=== PATIENT | female | born 1975 | race Two or more races ===

== ENCOUNTER 2022-11-19 18:09 | Emergency (ER) | payer MEDICAID, OTHER ==
[~2022-11-19] VITALS: Ht 165.1 cm; Wt 102.6 kg
[2022-11-19 18:48] VITALS: O2SAT 98
[2022-11-20] MEDS ORDERED: LORazepam 0.5 MG TAB PO ONE (02:30)
[2022-11-20] MEDS ORDERED: GABA-1250 PO (02:34)
[2022-11-20] MEDS ORDERED: ESCI10TA PO (02:34)
[2022-11-20] MEDS ORDERED: METF-372 PO (02:34)
[2022-11-20] MEDS ORDERED: ATOR40TA52 PO (02:34)
[2022-11-20] MEDS ORDERED: LOSA25TA15 PO (02:34)
[2022-11-20 02:51] VITALS: BP 131/74; PULSE 67; RESP 18; TEMP 98.3
== END 2022-11-20 02:54 | disposition home or self-care (01) ==
LOC: ER 18:09
DX: E11.65 Type 2 diabetes mellitus with hyperglycemia (principal); I10 Essential (primary) hypertension; F41.9 Anxiety disorder, unspecified; G62.9 Polyneuropathy, unspecified; E78.5 Hyperlipidemia, unspecified; Z79.84 Long term (current) use of oral hypoglycemic drugs; Z79.899 Other long term (current) drug therapy; Z88.0 Allergy status to penicillin
CPT/HCPCS: 82962

== ENCOUNTER 2023-02-11 13:27 | Emergency (ER) | payer SELFPAY ==
[~2023-02-11] VITALS: Ht 165.1 cm; Wt 101.8 kg
[~2023-02-11 13:27] MED LIST: ATOR40TA52 PO; ESCI10TA PO; GABA-1250 PO; LOSA25TA15 PO; METF-372 PO
[2023-02-11 18:44] VITALS: BP 131/69; PULSE 83; RESP 18; TEMP 98.1; O2SAT 99
[2023-02-11] MEDS ORDERED: GABA-1250 PO (18:58)
[2023-02-11] MEDS ORDERED: CLIN300C70 PO (18:58)
[2023-02-11] MEDS ORDERED: ESCI10TA PO (18:58)
[2023-02-11] MEDS ORDERED: METF-372 PO (18:58)
[2023-02-11] MEDS ORDERED: ACET500T58 PO (18:58)
== END 2023-02-11 19:04 | disposition home or self-care (01) ==
LOC: ER 13:27
DX: K04.7 Periapical abscess without sinus (principal); R51.9 Headache, unspecified; F41.9 Anxiety disorder, unspecified; G62.9 Polyneuropathy, unspecified; I10 Essential (primary) hypertension; E11.9 Type 2 diabetes mellitus without complications; Z88.0 Allergy status to penicillin

== ENCOUNTER 2023-07-25 16:12 | Emergency (ER) | payer MEDICAID ==
[~2023-07-25] VITALS: Ht 165.1 cm; Wt 108.5 kg
[~2023-07-25 16:12] MED LIST changes: +ACET500T58 PO; +CLIN1CAP70 PO; +LOSA-533 PO; -LOSA25TA15 PO
[2023-07-25] MEDS ORDERED: SODIUM CHLORIDE 0.9% 1,000 ML IV ONE (16:30)
[2023-07-25 16:42] VITALS: BP 128/68; RESP 16; O2SAT 94
[2023-07-25] MEDS ORDERED: LOSA-533 PO (16:49)
[2023-07-25] MEDS ORDERED: INSU70IN3 SC ×2 (16:49)
[2023-07-25] MEDS ORDERED: ATOR40TA52 PO (16:49)
[2023-07-25] MEDS ORDERED: MECL-90 PO (16:49)
[2023-07-25] MEDS ORDERED: GLUC-145 VI (16:49)
[2023-07-25] MEDS ORDERED: GABA-1250 PO (16:49)
[2023-07-25] MEDS ORDERED: METF-371 PO (16:49)
[2023-07-25] MEDS ORDERED: ESCI1TAB36 PO (16:49)
[2023-07-25 19:18] VITALS: PULSE 71
== END 2023-07-25 19:18 | disposition home or self-care (01) ==
LOC: ER 16:12
DX: E11.65 Type 2 diabetes mellitus with hyperglycemia (principal); E78.5 Hyperlipidemia, unspecified; I10 Essential (primary) hypertension; Z76.0 Encounter for issue of repeat prescription; Z88.0 Allergy status to penicillin
CPT/HCPCS: 82962

== ENCOUNTER 2024-04-04 14:15 | Emergency (ER) | payer MEDICAID ==
[~2024-04-04] VITALS: Ht 165.1 cm; Wt 113.7 kg
[~2024-04-04 14:15] MED LIST changes: +ESCI1TAB36 PO; +GLUC-145 VI; +INSU70IN3 SC; +MECL-90 PO; +METF-371 PO
[2024-04-04 16:06] VITALS: BP 134/60; PULSE 81; RESP 16; TEMP 98.1; O2SAT 96
[2024-04-04] MEDS ORDERED: METF-372 PO (16:17)
[2024-04-04] MEDS ORDERED: SERT50TA PO (16:17)
--- NOTE | 2024-04-04 16:21 | ED.PDOC ---
History of Present Illness HPI Comments A 48 YEAR OLD FEMALE PRESENTS TO THE ED WITH CHIEF COMPLAINT OF MEDICATION REFILL. PATIENT REPORTS THAT SHE NEEDS A REFILL OF HER METFORMIN AND ZOLOFT HER NEXT PCP APPOINTMENT IS IN 2 WEEKS. PATIENT STATES SHE HAS BEEN OUT OF HER MEDICATION FOR 3 DAYS. PATIENT DENIES ANY SYMPTOMS AT THIS TIME. NO OTHER SY MPTOMS REPORTED AT THIS TIME OF CARE. Chief Complaint: Hyperglycemia Time Seen by MD: 16:16 Primary Care Provider: THU Reviewed Notes: Nurses Notes, Medications, Allergies Allergies: Coded Allergies: Penicillins (Verified Allergy, Unknown, 11/19/22) Home Meds Active Scripts Sertraline Hcl (Zoloft) 50 Mg Tab, 1 TAB PO DAILY, #30 TAB Prov:IGGY GIL 04/04/24 Metformin Hydrochloride (Metformin Hcl) 1,000 Mg Tab, 1 TAB PO BID, #60 TAB 0 Refills Prov:IGGY GIL 04/04/24 Insulin NPH Isophane & Reg (Hu (Novolin 70/30 (70-30) 100 Unit/ml) 1 Inj Inj, 23 UNITS SC DAILY@DINNER for 30 Days, #20 ML 3 Refills Prov:HENRIKENDALLZoltanPAMELA José DO 07/25/23 Insulin NPH Isophane & Reg (Hu (Novolin 70/30 (70-30) 100 Unit/ml) 1 Inj Inj, 27 UNITS SC DAILY@LUNCH for 30 Days, #20 ML Prov:HENRIKENDALLZoltanPAMELA José DO 07/25/23 Glucose Blood (Freestyle Test Strips) [place]antelle, 120 STRIPS BID for 30 Days, #120 MISC 3 Refills Prov:HENRIKENDALLZoltanPAMELA José DO 07/25/23 Losartan Potassium (Losartan Potassium) 25 Mg Tab, 1 TAB PO DAILY for 90 Days, #90 TAB 1 Refill Prov:HENRIKENDALLZoltanJULIANBeatriz Kumar DO 07/25/23 Escitalopram Oxalate (ESCITALOPRAM OXALATE) 10 Mg Tab, 3 TAB PO DAILY for 90 Days, #270 TAB 3 Refills Prov:HENRIKENDALLZoltanJULIANBeatriz Kumar DO 07/25/23 Gabapentin (Gabapentin) 300 Mg Cap, 1 CAP PO BID for 30 Days, #60 CAP 5 Refills Prov:HENRIKENDALLZoltanJULIANBeatriz Kumar DO 07/25/23 Metformin Hydrochloride (Metformin Hcl) 850 Mg Tab, 1000 MG PO BID for 90 Days, #180 TAB Prov:MARYLOU ÁLVAREZ DO 07/25/23 Meclizine Hcl (Meclizine Hcl) 25 Mg Tab, 25 MG PO TIDPRN PRN for 10 Days, #30 TAB Prov:MARYLOU ÁLVAREZ DO 07/25/23 Atorvastatin Calcium (ATORVASTATIN CALCIUM) 40 Mg Tab, 1 TAB PO QPM for 90 Days, #90 TAB 3 Refills Prov:MARYLOU ÁLVAREZ DO 07/25/23 Escitalopram Oxalate (Lexapro) 10 Mg Tab, 3 TAB PO DAILY, #30 TAB 0 Refills Prov:ANDRÉS SALMERON 02/11/23 Gabapentin (Gabapentin) 300 Mg Cap, 1 CAP PO BID, #60 CAP 0 Refills Prov:ANDRÉS SALMERON 02/11/23 Metformin Hydrochloride (Metformin Hcl) 1,000 Mg Tab, 1 TAB PO BID, #60 TAB 0 Refills Prov:ANDRÉS SALMERON 02/11/23 Acetaminophen (Acetaminophen) 500 Mg Tab, 500 MG PO QIDP, #30 TAB 0 Refills Prov:ANDRÉS SALMERON 02/11/23 Clindamycin Hcl (Clindamycin Hcl) 300 Mg Cap, 1 CAP PO TID for 7 Days, #21 CAP 0 Refills Prov:ANDRÉS SALMERON 02/11/23 Escitalopram Oxalate (Lexapro) 10 Mg Tab, 1 TAB PO TID for 7 Days, #21 TAB 0 Refills Prov:ANDRÉS SALMERON 11/20/22 Atorvastatin Calcium (ATORVASTATIN CALCIUM) 40 Mg Tab, 1 TAB PO DAILY, #30 TAB 0 Refills Prov:ANDRÉS SALMERON 11/20/22 Losartan Potassium (Losartan Potassium) 25 Mg Tab, 1 TAB PO DAILY for 7 Days, #7 TAB 0 Refills Prov:ANDRÉS SALMERON 11/20/22 Gabapentin (Gabapentin) 300 Mg Cap, 1 CAP PO BID, #60 CAP 0 Refills Prov:ANDRÉS SALMERON 11/20/22 Information Source: Patient Mode of Arrival: Ambulatory Severity: None Timing: Minutes Duration: Since onset Prehospital treatment: None Medication Refill: Ran out of Medication, For: Diabetes, For: Psychiatric Past Medical History PAST MEDICAL HISTORY: Anxiety, Depression, DM, High Lipids, HTN Surgical History: Denies all surgeries RAIL MANAGER History: 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 all 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 Family History Family History: Reviewed,noncontributory to illness, Unknown Social History Smoker: Non-Smoker Alcohol: Denies ETOH Use Drugs: Denies Drug Use Lives In: Home Constitutional: denies: chills, diaphoresis, fatigue, fever, malaise, sweats, weakness, others EENTM: denies: blurred vision, double vision, ear bleeding, ear discharge, ear drainage, ear pain, ear ringing, eye pain, eye redness, hearing loss, mouth pain, mouth swelling, nasal discharge, nose bleeding, nose congestion, nose pain, photophobia, tearing, throat pain, throat swelling, voice changes, others Respiratory: denies: cough, hemoptysis, orthopnea, SOB at rest, shortness of breath, SOB with excertion, stridor, wheezing, others Cardiovascular: denies: chest pain, dizzy spells, diaphoresis, Dyspnea on exertion, edema, irregular heart beat, left arm pain, lightheadedness, palpitations, PND, syncope, others Gastrointestinal: denies: abdomen distended, abdominal pain, blood streaked bowels, constipated, diarrhea, dysphagia, difficulty swallowing, hematemesis, melena, nausea, poor appetite, poor fluid intake, rectal bleeding, rectal pain, vomiting, others Genitourinary: denies: abnormal vagina bleeding, burning, dyspareunia, dysuria, flank pain, frequency, hematuria, incontinence, pain, , vagina discharge, urgency, others Neurological: denies: dizziness, fainting, headache, left sided numbness, left sided weakness, numbness, paresthesia, pre-existing deficit, right sided numbness, right sided weakness, seizure, speech problems, tingling, tremors, weakness, others Musculoskeletal: denies: back pain, gout, joint pain, joint swelling, muscle pain, muscle stiffness, neck pain, others Integumetry: denies: bruises, change in color, change in hair/nails, dryness, laceration, lesions, lumps, rash, wounds, others Allergic/Immunocompromised: denies: Difficulty Healing, Frequent Infections, Hives, Itching, others Hematologic/Lymphatic: denies: anemia, blood clots, easy bleeding, easy bruising, swollen glands, others Endocrine: denies: excessive hunger, excessive sweating, excessive thirst, excessive urination, flushing, intolerance to cold, intolerance to heat, unexplained weight gain, unexplained weight loss, others Psychiatric: denies: anxiety, bipolar disorder, depression, hopeless, panic disorder, schizophrenia, sleepless, suicidal, others All Other Systems: Reviewed and Negative Physical Exam General Appearance: No Apparent Distress, Obese HEENT: Normal ENT Inspection, PERRL/EOMI Neck: Full Range of Motion, Non-Tender, Normal, Normal Inspection Respiratory: Chest Non-Tender, Lungs Clear, No Accessory Muscle Use, No Respiratory Distress, Normal Breath Sounds Cardiovascular: No Edema, No JVD, No Murmur, No Gallop, Normal Peripheral Pulses, Regular Rate/Rhythm Breast Exam: Deferred Gastrointestinal: No Organomegaly, Non Tender, No Pulsatile Mass, Normal Bowel Sounds, Soft Genitalia: Deferred Pelvic: Deferred Rectal: Deferred Extremities: No calf tenderness, Normal capillary refill, Normal inspection, Normal range of motion, Non-tender, No pedal edema Musculoskeletal : Apperance: Normal Neurologic: Alert, ash conveyor operator II-XII nml as Tested, No Motor Deficits, Normal Affect, Normal Mood, No Sensory Deficits Cerebellar Function: Normal Reflexes: Normal Skin: Dry, Normal Color, Warm Peripheral Pulses: 2+ carotid (R), 2+ carotid (L) Lymphatic: No Adenopathy Was a procedure done? Was a procedure done?: No Differential Dx Considerations may include: MEDICATION REFILL, HX OF DM AND DEPRESSION X-Ray, Labs, Meds, VS Vital Signs Date Time Temp Pulse Resp B/P (MAP) Pulse Ox O2 Delivery O2 Flow Rate FiO2 04/04/24 16:06 81 16 96 Room Air 04/04/24 16:06 98.1 81 16 134/60 (84) 96 98.1 04/04/24 15:13 98.1 81 16 134/60 (84) 96 X-Ray, Labs, Meds, VS Comment EXTERNAL MEDICAL RECORDS REVIEWED: [NONE] INDEPENDENT HISTORIANS: [NONE] SOCIAL DETERMINANTS OF HEALTH: [NONE] LABS ORDERED: NONE REVIEWED AND INTERPRETED RESULTS: NONE IMAGING ORDERED: NONE TREATMENTS ORDERED: NONE PROCEDURES PERFORMED: NONE CRITICAL CARE TIME: NONE I HAVE DISCUSSED THE PATIENT WITH THE ATTENDING PHYSICIAN [PHYSICIAN'S NAME] AND HE AGREES WITH THE PATIENT'S PLAN OF CARE AND DISPOSITION. GIVEN THE HISTORY AND PRESENT ILLNESS OF THE PATIENT, AFTER REVIEWING LABS, IMAGING, AND COURSE OF TREATMENT ADMINISTERED DURING THEIR ED VISIT, THERE IS LOW SUSPICION FOR RED FLAG FINDINGS. BASED ON HISTORY OF PRESENT ILLNESS, AND PHYSICAL EXAM, PATIENT WILL BE DISCHARGED HOME. DISCUSSED PLAN FOR DISCHARGE HOME WITH RX METFORMIN AND ZOLOFT. MEDICATION WARNINGS GIVEN. SHARED DECISION MAKING: DISCUSSED WITH PATIENT THAT THEIR WORKUP WAS NORMAL. PATIENT INSTRUCTED TO FOLLOW UP WITH PRIMARY CARE PROVIDER IN 1-2 DAYS FOR RE- EVALUATION OF SYMPTOMS. PATIENT VERBALIZES UNDERSTANDING TO RETURN TO ED FOR NEW OR WORSENING SYMPTOMS OR IF FOLLOW UP WITH PCP CANNOT BE OBTAINED. PATIENT FEELS COMFORTABLE GOING HOME AT THIS TIME. ALL QUESTIONS ADDRESSED AT TIME OF DISC HARGE. Time of 1ST Reevaluation: 16:27 Reevaluation 1ST: Improved Patient Education/Counseling: Diagnosis, Treatment, Need For Follow Up Family Education/Counseling: Diagnosis, Treatment, No Family Present Medical Screening: No EMC Exist At This Time Departure 1 Departure Time of Disposition: 16:27 Impression: Primary Impression: Medication refill Additional Impression: Hx of diabetes mellitus Disposition: HOME / SELF CARE / HOMELESS Condition: Stable Additional Instructions: FOLLOW-UP WITH PCP IN 2 WEEKS. TAKE MEDICATIONS PRESCRIBED. RETURN TO ED FOR ANY NEW OR WORSENING SYMPTOMS. e-Prescriptions Sertraline Hcl (Zoloft) 50 Mg Tab 1 TAB PO DAILY, #30 TAB Prov: IGGY GIL 04/04/24 Metformin Hydrochloride (Metformin Hcl) 1,000 Mg Tab 1 TAB PO BID, #60 TAB 0 Refills Prov: IGGY GIL 04/04/24 Discharged With: Self Critical Care Note Critical Care Time?: No Stability Stability form required: No Heart Score Heart Score: Heart Score Response (Comments) Value History N/A 0 EKG N/A 0 Age N/A 0 Risk Factors N/A 0 Troponin N/A 0 Total 0 I personally scribed for IGGY GIL ([email or web address]) on 04/04/24 at 16:21. Electronically submitted by Holland Robles ([email or web address]). IGGY GIL Apr 04, 2024 16:21
== END 2024-04-04 16:27 | disposition home or self-care (01) ==
LOC: ER 14:15
DX: E11.9 Type 2 diabetes mellitus without complications (principal); F32.A Depression, unspecified; F41.9 Anxiety disorder, unspecified; I10 Essential (primary) hypertension; Z76.0 Encounter for issue of repeat prescription; Z79.84 Long term (current) use of oral hypoglycemic drugs; Z79.899 Other long term (current) drug therapy; Z88.0 Allergy status to penicillin

== ENCOUNTER 2024-09-09 16:17 | Emergency (ER) | payer MEDICAID ==
[~2024-09-09] VITALS: Ht 165.1 cm; Wt 113.1 kg
[~2024-09-09 16:17] MED LIST changes: +SERT50TA PO
[2024-09-09 16:57] LABS: Basophils # (auto) 0.1 10 ^3/uL (0-0.2); Eosinophils # (auto) 0.1 10 ^3/uL (0-0.8); Eosinophils % (auto) 1.6 % (0.0-7.0); Hemoglobin 11.5 g/dL (12.2-16.2); Monocytes # (auto) 0.5 10 ^3/uL (0-1.3); Neutrophils # (auto) 5.2 10 ^3/uL (1.6-8.6)
[2024-09-09 16:58] LABS: Basophils % (auto) 1.2 % (0.0-2.0); Hematocrit 35.6 % (36.0-46.0); Lymphocytes # (auto) 2.1 10 ^3/uL (0.4-5.4); Mean Corpuscular Hemoglobin 23.4 pg (28.0-32.0); Mean Corpuscular Hgb Conc. 32.4 g/dL (32.0-36.0); Mean Corpuscular Volume 72.1 fL (80.0-100.0); Monocytes % (auto) 6.2 % (0.0-12.0); Platelet Count (auto) 289 10^3/uL (140-450); Red Blood Cells 4.94 10^6/uL (4.0-5.20); Red Cell Distribution Width 16.5 % (11.8-14.3)
--- NOTE | 2024-09-09 17:04 | ED.PDOC ---
GI ASSESSMENT HPI Comments HPI: Poor Historian. 48-year-old female presents to emergency department for chronic left lower quadrant abdominal pain nonradiating worse with sitting down. She had this for at least one year but has been progressively getting worse in the last week. Patient had incidentally one-week of diarrhea yellow in color 4-5 times episodes per day over the last seven days. Patient already had an ultrasound of her pelvis which showed uterine fibroids. She also had an MRI pending. Denies . Patient stated that they did not ultrasound on her few months ago and they could not visualize the left ovary. She is awaiting an MRI. Past Medical History: Uterine fibroids, hypertension, diabetes, obesity Past Surgical History: , tubal ligation, appendectomy REVIEW OF SYSTEMS: CONSTITUTIONAL: Denies acute: fever, diaphoresis, chills, generalized weakness. HEAD: Denies acute: headache, photophobia Eyes: Denies acute: Double vision, vision loss, eye pain, eye discharge. EARS: Denies acute: tinnitus, hearing loss, ear discharge, ear pain, THROAT: Denies acute: sore throat, swelling, difficulty swallowing , pain with swallowing, change in voice. NECK: Denies acute: neck pain, neck swelling, stiff neck. HEART: Denies acute : chest pain, palpitations, LUNGS: Denies acute: SOB, wheezing, cough, hemoptysis ABDOMEN: Denies acute: Nausea, Vomiting, melena , hematemesis, hematochezia SKIN: Denies acute: rash, redness, lesions, itchiness. EXTREMITIES: Denies acute: calf pain, numbness, tingling, weakness, denies pain in extremity. Denies acute: Low back pain. Neuro: Denies acute: focal neurological deficit, motor or sensory focal neurological deficit, tremors, seizure like activity, confusion, dizziness, change in mental status, loss of bowel or bladder function, cauda equina like symptoms. : Denies acute: dysuria, hematuria, flank pain, increase in urinary frequency. PSYCH: Denies acute: hallucination, suicidal ideation, homicidal ideation. FEMALE: Denies acute: abnormal vaginal bleeding, foul odor, unusual discharge. PHYSICAL EXAM: General: ---mild-----acute distress, awake and alert. Head: normocephalic, atraumatic. Neck: supple, trachea is midline, no swelling. Throat: Normal phonation. Eyes:, no erythema, no purulent discharge, no proptosis, no icterus. Heart: regular rate, regular rhythm, no significant murmur appreciated. Lungs: no apparent respiratory distress, Able to speak in full sentences. No wheezing, no rhonchi, no crackles. No stridors Clear to auscultation bilaterally. Abdomen: Left lower quadrant tender to palpation, non distended, soft, no guarding, no rebound, + bowel sounds. Obese Neuro: Awake, Alert, oriented to name, self, situation, follows commands GCS=15. Speech is normal. Skin: no petechia, no purpura, no cyanosis, non-pale, not jaundice. Lower extremities: --no - Pitting edema no deformity, no focal swelling, no calf TTP. Makes eye contact. moves all four extremities. Face: no apparent facial droop. Ambulating in the ED independently. ED COURSE: Chief Complaint: Abdominal Pain Time Seen by MD: 16:28 Primary Care Provider: THU Reviewed Notes: Nurses Notes, Allergies Allergies: Coded Allergies: Penicillins (Verified Allergy, Unknown, 11/19/22) Home Meds Active Scripts Sertraline Hcl (Zoloft) 50 Mg Tab, 1 TAB PO DAILY, #30 TAB Prov:IGGY GIL 04/04/24 Metformin Hydrochloride (Metformin Hcl) 1,000 Mg Tab, 1 TAB PO BID, #60 TAB 0 Refills Prov:IGGY GIL 04/04/24 Insulin NPH Isophane & Reg (Hu (Novolin 70/30 (70-30) 100 Unit/ml) 1 Inj Inj, 23 UNITS SC DAILY@DINNER for 30 Days, #20 ML 3 Refills Prov:MARYLOU ÁLVAREZ DO 07/25/23 Insulin NPH Isophane & Reg (Hu (Novolin 70/30 (70-30) 100 Unit/ml) 1 Inj Inj, 27 UNITS SC DAILY@LUNCH for 30 Days, #20 ML Prov:MARYLOU ÁLVAREZ DO 07/25/23 Glucose Blood (Freestyle Test Strips) Shant[place], 120 STRIPS BID for 30 Days, #120 MISC 3 Refills Prov:MARYLOU ÁLVAREZ 07/25/23 Losartan Potassium (Losartan Potassium) 25 Mg Tab, 1 TAB PO DAILY for 90 Days, #90 TAB 1 Refill Prov:MARYLOU ÁLVAREZ 07/25/23 Escitalopram Oxalate (ESCITALOPRAM OXALATE) 10 Mg Tab, 3 TAB PO DAILY for 90 Days, #270 TAB 3 Refills Prov:MARYLOU ÁLVAREZ [facility] 07/25/23 Gabapentin (Gabapentin) 300 Mg Cap, 1 CAP PO BID for 30 Days, #60 CAP 5 Refills Prov:MARYLOU ÁLVAREZ 07/25/23 Metformin Hydrochloride (Metformin Hcl) 850 Mg Tab, 1000 MG PO BID for 90 Days, #180 TAB Prov:MARYLOU ÁLVAREZ 07/25/23 Meclizine Hcl (Meclizine Hcl) 25 Mg Tab, 25 MG PO TIDPRN PRN for 10 Days, #30 TAB Prov:MARYLOU ÁLVAREZ 07/25/23 Atorvastatin Calcium (ATORVASTATIN CALCIUM) 40 Mg Tab, 1 TAB PO QPM for 90 Days, #90 TAB 3 Refills Prov:MARYLOU ÁLVAREZ 07/25/23 Escitalopram Oxalate (Lexapro) 10 Mg Tab, 3 TAB PO DAILY, #30 TAB 0 Refills Prov:ANDRÉS SALMERON 02/11/23 Gabapentin (Gabapentin) 300 Mg Cap, 1 CAP PO BID, #60 CAP 0 Refills Prov:ANDRÉS SALMERON 02/11/23 Metformin Hydrochloride (Metformin Hcl) 1,000 Mg Tab, 1 TAB PO BID, #60 TAB 0 Refills Prov:ANDRÉS SALMERON 02/11/23 Acetaminophen (Acetaminophen) 500 Mg Tab, 500 MG PO QIDP, #30 TAB 0 Refills Prov:ANDRÉS SALMERON 02/11/23 Clindamycin Hcl (Clindamycin Hcl) 300 Mg Cap, 1 CAP PO TID for 7 Days, #21 CAP 0 Refills Prov:ANDRÉS SALMERON 02/11/23 Escitalopram Oxalate (Lexapro) 10 Mg Tab, 1 TAB PO TID for 7 Days, #21 TAB 0 Refills Prov:ANDRÉS SALMERON 11/20/22 Atorvastatin Calcium (ATORVASTATIN CALCIUM) 40 Mg Tab, 1 TAB PO DAILY, #30 TAB 0 Refills Prov:ANDRÉS SALMERON 11/20/22 Losartan Potassium (Losartan Potassium) 25 Mg Tab, 1 TAB PO DAILY for 7 Days, #7 TAB 0 Refills Prov:ANDRÉS SALMERON 11/20/22 Gabapentin (Gabapentin) 300 Mg Cap, 1 CAP PO BID, #60 CAP 0 Refills Prov:ANDRÉS SALMERON 11/20/22 Information Source: Patient Mode of Arrival: Ambulatory Past Medical History PAST MEDICAL HISTORY: Anxiety, Depression, DM, High Lipids, HTN Surgical History: Denies all surgeries 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 Was a procedure done?: No GI differential Dx Differential Diagnosis: Other (DDX include Diverticulitis, colitis, gastroenteritis, acute abdomen, SBO, enteritis, constipation, volvulus, appendicitis, Gallbladder disease, choledocolithiasis, ascending cholangitis, pancreatitis, intraAbdominal mass/neoplasm, hepatitis, UTI, pylonephritis, kidney stone, aneurysm, dissection, Inflammatory bowel disease, gastroparesis, ischemic bowel, ovarian torsion, ovarian cyst/mass, tubo-ovarian abscess, pre gnancy, ectopic , PID, STD.) X-Ray, Labs, Meds, VS Vital Signs Date Time Temp Pulse Resp B/P (MAP) Pulse Ox O2 Delivery O2 Flow Rate FiO2 09/09/24 20:10 Room Air* 0 21 09/09/24 19:35 64 20 97 Room Air 09/09/24 19:35 98.4 64 20 140/76 (97) 97 98.4 09/09/24 16:29 98.3 71 17 174/89 (117) 98 98.3 Lab Test 09/09/24 16:44 09/09/24 16:33 Range/Units White Blood Count 8.0 4.4-10.8 10^3/uL Red Blood Count 4.94 4.0-5.20 10^6/uL Hemoglobin 11.5 L 12.2-16.2 g/dL Hematocrit 35.6 L 36.0-46.0 % Mean Corpuscular Volume 72.1 L 80.0-100.0 fL Mean Corpuscular Hemoglobin 23.4 L 28.0-32.0 pg Mean Corpuscular Hemoglobin Concent 32.4 32.0-36.0 g/dL Red Cell Distribution Width 16.5 H 11.8-14.3 % Platelet Count 289 140-450 10^3/uL Mean Platelet Volume 8.6 6.9-10.8 fL Neutrophils (%) (Auto) 65.0 37.0-80.0 % Lymphocytes (%) (Auto) 26.0 10.0-50.0 % Monocytes (%) (Auto) 6.2 0.0-12.0 % Eosinophils (%) (Auto) 1.6 0.0-7.0 % Basophils (%) (Auto) 1.2 0.0-2.0 % Neutrophils # (Auto) 5.2 1.6-8.6 10 ^3/uL Lymphocytes # (Auto) 2.1 0.4-5.4 10 ^3/uL Monocytes # (Auto) 0.5 0-1.3 10 ^3/uL Eosinophils # (Auto) 0.1 0-0.8 10 ^3/uL Basophils # (Auto) 0.1 0-0.2 10 ^3/uL Nucleated Red Blood Cells 0.0 % Sodium Level 139 136-145 mmol/L Potassium Level 3.9 3.5-5.1 mmol/L Chloride Level 103 98-107 mmol/L Carbon Dioxide Level 28 20-31 mmol/L Anion Gap 8 5-15 Blood Urea Nitrogen 10 9-23 mg/dL Creatinine 0.71 0.550-1.02 mg/dL Glomerular Filtration Rate Calc 104 >90 mL/min BUN/Creatinine Ratio 14.1 10.0-20.0 Serum Glucose 87 74-106 mg/dL Lactic Acid Level 1.1 0.4-2.0 mmol/L Calcium Level 10.5 H 8.7-10.4 mg/dL Total Bilirubin 0.5 0.2-1.0 mg/dL Aspartate Amino Transferase (AST) 31 13-40 U/L Alanine Aminotransferase (ALT) 53 H 7-40 U/L Alkaline Phosphatase 89 46-116 U/L Total Protein 7.7 5.7-8.2 g/dL Albumin 4.9 H 3.2-4.8 g/dL Lipase 38 12-53 U/L Urine Color Colorless Yellow Urine Clarity Clear Clear Urine pH 6.5 5.0-9.0 Urine Specific [place] 1.007 1.001-1.035 Urine Protein Negative Negative Urine Ketones Negative Negative Urine Blood Negative Negative /uL Urine Nitrite Negative Negative Urine Bilirubin Negative Negative Urine Urobilinogen Normal Negative mg/dL Urine Leukocyte Esterase Negative Negative /uL Urine RBC <1 0 - 4 /hpf Urine Microscopic WBC < 1 0-5 /HPF Urine Squamous Epithelial Cells Few <5 /hpf Urine Bacteria Few H None Seen /hpf Urine Glucose Normal Normal mg/dL Current Medications Medications (Trade) Dose Ordered Sig/Robb Route Start Time Stop Time Status Last Admin Ketorolac Tromethamine (Toradol Injection) 60 mg ONCE ONCE IM 09/09/24 19:43 09/09/24 19:44 DC 09/09/24 19:57 PATIENT: KATT CORDOBA ACCT: [id number] UNIT: [id number] : 1975 LOC: ER ROOM / BED: / AGE / SEX: 48 / F ADM STATUS: REG ER SERVICE 1634 ORDERING PHYSICIAN: TREVOR SAHU DO PROCEDURE(s): PELUS - PELVIC REASON: LLQ PAIN. ORDER NUMBER(s): [id number], ACCESSION NUMBER(s): [id number] Procedure: US PELVIC Study Date and Requested Time: 09/09/2024 04:42 PM Study Description: US PELVIC History: LLQ PAIN. Comparison: CT abdomen and pelvis. Technique: Multiple transabdominal and transvaginal high resolution casillas-scale images obtained of the uterus and adnexa with color Doppler for evaluation of adnexal blood flow and vascularity as indicated. Findings: Uterus measures 8.8 x 4.4 x 4 cm, with homogeneous echotexture. Endometrium within normal limits, measuring 0.5 cm in thickness with smooth contour. Multiple anechoic structures over the cervical region largest measuring up to 1.3 x 1.1 x 1.1 cm Right ovary measures 4.4 x 3.7 x 2.9 cm with a 3.9 x 2.3 x 3.2 cm cyst. Normal right ovarian color doppler flow. The left ovary is not visualized. No evidence of free fluid in the cul-de-sac. Impression: Multiple cystic structures over the cervical region, largest measuring up to 1.3 cm. 3.9 cm right ovarian cyst. The left ovary is not visualized. ATED BY: LEOLA KRISHNAN DO DICTATED DATE/TIME: 09/09/241752 SIGNED BY: LEOLA KRISHNAN DO SIGNED DATE/TIME: 09/09/241752 PATIENT: KATHARINA CORDOBAT: [id number] UNIT: [id number] : 1975 LOC: ER ROOM / BED: / AGE / SEX: 48 / F ADM STATUS: REG ER SERVICE 33 ORDERING PHYSICIAN: TREVOR SAHU DO PROCEDURE(s): ABPL - CT AB PEL WO CON-NO ORAL OR IV REASON: LLQ DIARRHEA. ORDER NUMBER(s): [id number], ACCESSION NUMBER(s): [id number] Indication: LLQ DIARRHEA. Technique: CT axial images of the abdomen and pelvis are obtained without contrast. Coronal and sagittal reformats were obtained. Radiation Dose Information: CTDI volume is 26.34 mGy. Dose-length product is 1514.65 mGy*cm Comparison: None FINDINGS: There is limited interpretation of the abdomen and pelvis without administration of intravenous contrast. Lung bases demonstrate no pleural effusion. Adrenal glands, spleen, pancreas and liver unremarkable in shape. Cholelithiasis. The kidneys demonstrate no hydronephrosis, nephrolithiasis. Stomach partially distended. Small bowel loops are normal in caliber. Colonic diverticular disease. Moderate volume stool in the colon. Bladder is partially distended. Heterogeneous right ovarian/ adnexal lesion measuring 3.5 cm. Heterogeneous appearance of the lower uterine segment/ cervix. No aggressive osseous process. IMPRESSION: 1. Colonic diverticular disease. 2. Heterogeneous right ovarian/ adnexal lesion measuring 3.5 cm. Recommend pelvic ultrasound to further evaluate. 3. Heterogeneous appearance of the lower uterine segment/ cervical region which can also be further characterized on pelvic ultrasound. 4. Cholelithiasis 5. Other findings as described. ATED BY: RAÚL RAI MD DICTATED DATE/TIME: 09/09/241708 SIGNED BY: RAÚL RAI MD SIGNED DATE/TIME: 09/09/241708 Time of 1ST Reevaluation: 00:00 Reevaluation 1ST: Patient Education/Counseling: Diagnosis, Treatment Family Education/Counseling: No Family Present Comments Patient presented with the above HPI.--chronic pelvic pain----workup was initiated. patient was found with the above mentioned diagnosis. the following medications were ordered: please refer to order lists of meds and tests obtained by myself Dr. Sahu. Patient ED course and VS have been stabilized. Patient has been reassessed in the ED and remained in a stable condition. Pertinent incidental findings were discussed with the patient and/or family. Patient/family voices understanding and is agreeable with plan. Patient has been observed in the ED adequate length of time to insure improvement/stability. Escalation of care considered: Consideration of escalation to observation or admission Patient was DISCHARGED home in a stable condition. All the reports of any imaging studies that were ordered by myself were reviewed by myself. Departure 1 Departure Time of Disposition: 19:19 Impression: Primary Impression: Chronic pelvic pain in female Additional Impressions: Ovarian cyst Anemia Disposition: 01 HOME / SELF CARE / HOMELESS Condition: Stable Additional Instructions: Additional instructions: You MUST follow-up with your primary care/family doctor in 1 to 2 days. If you are unable to see your primary care/family doctor, please return to our emergency room for re-assessment and re-evaluation in 1 to 2 days. Return to the emergency room here in our facility or to the nearest ER [facility] if your symptoms change or worsen. CONSULTATIONS: you MUST Follow-up for consultation as soon as possible with: Dr.-OB Neil doctor in 1-2 days. Please call for appointment. You MUST call the consultants office yourself to make an appointment. You may need to arrange that through your insurance and/or your primary/family doctor. If you are unable to see the [employer] consultant in 1 to 2 days, you must return to our emergency room (or any other ER of your choice) for re-assessment and re- evaluation. Adequate fluid hydration. Absolute pelvic rest. Below is a copy of your radiological report for follow up: [address] [address] Ph: [phone] DIAGNOSTIC IMAGING Diagnostic Imaging Report : [id number] Signed PATIENT: KATT CORDOBA ACCT: [id number] UNIT: [id number] : 1975 LOC: ER ROOM / BED: / AGE / SEX: 48 / F ADM STATUS: REG ER SERVICE 1634 ORDERING PHYSICIAN: TREVOR SAHU DO PROCEDURE(s): PELUS - PELVIC REASON: LLQ PAIN. ORDER NUMBER(s): [id number], ACCESSION NUMBER(s): [id number] Procedure: US PELVIC Study Date and Requested Time: 09/09/2024 04:42 PM Study Description: US PELVIC History: LLQ PAIN. Comparison: CT abdomen and pelvis. Technique: Multiple transabdominal and transvaginal high resolution casillas-scale images obtained of the uterus and adnexa with color Doppler for evaluation of adnexal blood flow and vascularity as indicated. Findings: Uterus measures 8.8 x 4.4 x 4 cm, with homogeneous echotexture. Endometrium within normal limits, measuring 0.5 cm in thickness with smooth contour. Multiple anechoic structures over the cervical region largest measuring up to 1.3 x 1.1 x 1.1 cm Right ovary measures 4.4 x 3.7 x 2.9 cm with a 3.9 x 2.3 x 3.2 cm cyst. Normal right ovarian color doppler flow. The left ovary is not visualized. No evidence of free fluid in the cul-de-sac. Impression: Multiple cystic structures over the cervical region, largest measuring up to 1.3 cm. 3.9 cm right ovarian cyst. The left ovary is not visualized. ATED BY: LEOLA KRISHNAN DO DICTATED DATE/TIME: 09/09/241752 SIGNED BY: LEOLA KRISHNAN DO SIGNED DATE/TIME: 09/09/241752 CC: [address] [address] Ph: [phone] DIAGNOSTIC IMAGING Diagnostic Imaging Report : [id number] Signed PATIENT: KATT CORDOBA ACCT: [id number] UNIT: [id number] : 1975 LOC: ER ROOM / BED: / AGE / SEX: 48 / F ADM STATUS: REG ER SERVICE 1634 ORDERING PHYSICIAN: TREVOR SAHU DO PROCEDURE(s): ABPL - CT AB PEL WO CON-NO ORAL OR IV REASON: LLQ DIARRHEA. ORDER NUMBER(s): [id number], ACCESSION NUMBER(s): [id number] Indication: LLQ DIARRHEA. Technique: CT axial images of the abdomen and pelvis are obtained without contrast. Coronal and sagittal reformats were obtained. Radiation Dose Information: CTDI volume is 26.34 mGy. Dose-length product is 1514.65 mGy*cm Comparison: None FINDINGS: There is limited interpretation of the abdomen and pelvis without administration of intravenous contrast. Lung bases demonstrate no pleural effusion. Adrenal glands, spleen, pancreas and liver unremarkable in shape. Cholelithiasis. The kidneys demonstrate no hydronephrosis, nephrolithiasis. Stomach partially distended. Small bowel loops are normal in caliber. Colonic diverticular disease. Moderate volume stool in the colon. Bladder is partially distended. Heterogeneous right ovarian/ adnexal lesion measuring 3.5 cm. Heterogeneous appearance of the lower uterine segment/ cervix. No aggressive osseous process. IMPRESSION: 1. Colonic diverticular disease. 2. Heterogeneous right ovarian/ adnexal lesion measuring 3.5 cm. Recommend pelvic ultrasound to further evaluate. 3. Heterogeneous appearance of the lower uterine segment/ cervical region which can also be further characterized on pelvic ultrasound. 4. Cholelithiasis 5. Other findings as described. ATED BY: RAÚL RAI MD DICTATED DATE/TIME: 09/09/241708 SIGNED BY: RAÚL RAI MD SIGNED DATE/TIME: 09/09/241708 CC: Discharged With: Self Critical Care Note Critical Care Time?: No I personally scribed for TREVOR SAHU DO ([email or web address]) on 09/09/24 at 18:59. Electronically submitted by Daryl Paulino ([email or web address]). TREVOR SAHU DO Sep 09, 2024 17:04
--- NOTE | 2024-09-09 17:11 | DVH ---
Indication: LLQ DIARRHEA. Technique: CT axial images of the abdomen and pelvis are obtained without contrast. Coronal and sagit naida reformats were obtained. Radiation Dose Information: CTDI volume is 26.34 mGy. Dose-length product is 1514.65 mGy*cm Comparison: None FINDINGS: There is limited interpretation of the abdomen and pelvis without administration of intravenous contr ast. Lung bases demonstrate no pleural effusion. Adrenal glands, spleen, pancreas and liver unremarkable in shape. Cholelithiasis. The kidneys demonstrate no hydronephrosis, nephrolithiasis. Stomach partially distended. Small bowel loops are normal in caliber. Colonic diverticular disease. Moderate volume stool in the colon. Bladder is partially distended. Heterogeneous right ovarian/ adnexal lesion measuring 3.5 cm. Heterog eneous appearance of the lower uterine segment/ cervix. No aggressive osseous process. IMPRESSION: 1. Colonic diverticular disease. 2. Heterogeneous right ovarian/ adnexal lesion measuring 3.5 cm. Recommend pelvic ultrasound to furt her evaluate. 3. Heterogeneous appearance of the lower uterine segment/ cervical region which can also be further c haracterized on pelvic ultrasound. 4. Cholelithiasis 5. Other findings as described.
[2024-09-09 17:12] LABS: Alkaline Phosphatase 89 U/L (46-116); Anion Gap 8 (5-15); Aspartate Aminotransferase 31 U/L (13-40); BUN/Creatinine Ratio 14.1 (10.0-20.0); Blood Urea Nitrogen 10 mg/dL (9-23); Carbon Dioxide 28 mmol/L (20-31); Chloride 103 mmol/L (98-107); Glucose 87 mg/dL (74-106); Potassium 3.9 mmol/L (3.5-5.1); Sodium 139 mmol/L (136-145); Total Protein 7.7 g/dL (5.7-8.2)
[2024-09-09 17:13] LABS: Alanine Aminotransferase 53 U/L (7-40); Albumin 4.9 g/dL (3.2-4.8); Bilirubin, Total 0.5 mg/dL (0.2-1.0); Calcium 10.5 mg/dL (8.7-10.4)
--- NOTE | 2024-09-09 17:55 | DVH ---
Procedure: US PELVIC Study Date and Requested Time: 09/09/2024 04:42 PM Study Description: US PELVIC History: LLQ PAIN. Comparison: CT abdomen and pelvis. Technique: Multiple transabdominal and transvaginal high resolution casillas-scale images obtained of the uterus and adnexa with color Doppler for evaluation of adnexal blood flow and vascularity as indicat ed. Findings: Uterus measures 8.8 x 4.4 x 4 cm, with homogeneous echotexture. Endometrium within normal limits, darorn suring 0.5 cm in thickness with smooth contour. Multiple anechoic structures over the cervical region largest measuring up to 1.3 x 1.1 x 1.1 cm Right ovary measures 4.4 x 3.7 x 2.9 cm with a 3.9 x 2.3 x 3.2 cm cyst. Normal right ovarian color d oppler flow. The left ovary is not visualized. No evidence of free fluid in the cul-de-sac. Impression: Multiple cystic structures over the cervical region, largest measuring up to 1.3 cm. 3.9 cm right ovarian cyst. The left ovary is not visualized.
[2024-09-09 18:02] LABS: Lipase 38 U/L (12-53)
[2024-09-09 18:21] LABS: Urine Bacteria FEW /hpf (None Seen); Urine Blood Negative /uL (Negative); Urine Clarity Clear (Clear); Urine Color Colorless (Yellow); Urine Protein, UAD Negative (Negative); Urine Specific Gravity 1.007 (1.001-1.035); Urine Squamous Epithelial Cell FEW /hpf (<5); Urine Urobilinogen Normal (Negative); Urine pH 6.5 (5.0-9.0)
[2024-09-09 18:22] LABS: Urine WBC < 1 /HPF (0-5)
[2024-09-09 19:35] VITALS: BP 140/76; PULSE 64; RESP 20; TEMP 98.4; O2SAT 97
[2024-09-09] MEDS: KETOROLAC TROMETH 30 MG/ML 1ML VIAL IV ONE (19:43)
[2024-09-09] MEDS: KETOROLAC TROMETH 60MG/2ML VIAL IM ONE (19:57)
== END 2024-09-09 20:30 | disposition home or self-care (01) ==
LOC: ER 16:17
DX: N83.201 Unspecified ovarian cyst, right side (principal); D64.9 Anemia, unspecified; G89.29 Other chronic pain; R10.2 Pelvic and perineal pain; F41.9 Anxiety disorder, unspecified; I10 Essential (primary) hypertension; F32.A Depression, unspecified; E78.5 Hyperlipidemia, unspecified; E11.9 Type 2 diabetes mellitus without complications; E66.9 Obesity, unspecified; Z90.49 Acquired absence of other specified parts of digestive tract; Z98.51 Tubal ligation status; Z79.899 Other long term (current) drug therapy; Z98.890 Other specified postprocedural states; Z88.0 Allergy status to penicillin
CPT/HCPCS: 36415; 74176; 76830; 76856; 80053; 81001; 83605; 83690; 85025; 96372; 99285; J1885